=== PATIENT | female | born 1960 | race Caucasian/White ===

== ENCOUNTER 2023-04-21 10:22 | Emergency (ER) | payer OTHER, MEDICAID ==
[~2023-04-21] VITALS: Ht 157.5 cm; Wt 55.8 kg
[2023-04-21 10:30] VITALS: BP_SYST 127
[2023-04-21] MEDS ORDERED: PRED20TA PO (11:43)
[2023-04-21 11:54] VITALS: BP_SYST 127
== END 2023-04-21 11:54 | disposition home or self-care (01) ==
LOC: SED 10:22
DX: R06.02 Shortness of breath (principal); R51.9 Headache, unspecified; R09.81 Nasal congestion; R05.9 Cough, unspecified; Z88.5 Allergy status to narcotic agent; Z79.899 Other long term (current) drug therapy
CPT/HCPCS: 71045; 99283